=== PATIENT | female | born 1990 | race Caucasian/White ===

== ENCOUNTER 2016-10-14 10:41 | Emergency (ER) | payer SELFPAY ==
[2016-10-14 12:24] VITALS: BP 134/70
--- NOTE | 2016-11-15 18:44 | UC ---
Throat Pain/Nasal Jg HPI - HPI Summary HPI Summary: pt p/w [address], ear ache, sinus congestion/pain/olivia, green eye goup, non productive cough. - History of Current Complaint Chief Complaint: UCRespiratory Stated Complaint: EAR PAIN/ST Time Seen by Provider: 10/14/16 12:11 Hx Obtained From: Patient Hx Last Menstrual Period: 09/28/16 ?: No Onset/Duration: Gradual Onset, Lasting Weeks, Still Present Severity: Moderate Pain Intensity: 5 Pain Scale Used: 0-10 Numeric Cough: Nonproductive Associated Signs & Symptoms: Positive: Dysphagia, Wheezing, Sinus Discomfort, Nasal Discharge. Negative: Drooling, Fever, Vomiting Related History: Smoking - Epiglottits Risk Factors Epiglottis Risk Factors: Negative - Allergies/Home Medications Allergies/Adverse Reactions: Allergies Allergy/AdvReac Type Severity Reaction Status Date / Time Codeine Allergy Difficulty Verified 10/14/16 12:14 Breathing Home Medications: Home Medications Penicillin VK TAB 500 MG(NF) [Penicillin VK 500 mg Tab(NF)] 500 mg PO BID [History Confirmed 10/14/16] Pseudoephedrine TAB* [Sudafed TAB*] 30 mg PO Q6H PRN 10/14/16 [History Confirmed 10/14/16] PMH/Surg Hx/FS Hx/Imm Hx Previously Healthy: Yes - Surgical History Surgical History: Yes Surgery Procedure, Year, and Place: GALL BLADDER REMOVAL OCTOBER 2015 - Family History Known Family History: Negative: Cardiac Disease, Hypertension, Diabetes Family History: no FH asthma - Social History Alcohol Use: Occasionally Substance Use Type: None Smoking Status (MU): Current Some Day Smoker Type: Cigarettes Amount Used/How Often: social, 1-2 cigs QD, QOD Have You Smoked in the Last Year: Yes Cessation Counseling: Patient Advised to Stop Review of Systems Constitutional: Negative Skin: Negative Eyes: Drainage ENT: Sore Throat, Ear Ache, Nasal Discharge, Sinus Congestion, Sinus Pain/ Tenderness Respiratory: Cough Cardiovascular: Negative Gastrointestinal: Negative Musculoskeletal: Negative Neurological: Headache All Other Systems Reviewed And Are Negative: Yes Physical Exam Triage Information Reviewed: Yes Appearance: Well-Appearing, No Pain Distress, Well-Nourished Vital Signs: Initial Vital Signs Temp 98.1 F 10/14/16 12:18 Pulse 71 10/14/16 12:18 Resp 18 10/14/16 12:18 BP 134/70 10/14/16 12:18 Pulse Ox 100 10/14/16 12:18 Vital Signs Reviewed: Yes Eyes: Positive: Conjunctiva Clear. Negative: Discharge ENT: Positive: Hearing grossly normal, Pharyngeal erythema, Nasal congestion, Nasal drainage, TM bulging, TM dull, TM red. Negative: Tonsillar swelling, Tonsillar exudate, Trismus, Muffled/hoarse voice Neck: Positive: Supple, Nontender, No Lymphadenopathy Respiratory: Positive: No respiratory distress, No accessory muscle use, Wheezing - few scattered, Expiration - prolonged Cardiovascular: Positive: RRR, No Murmur Musculoskeletal Exam: Normal Neurological: Positive: Alert, Muscle Tone Normal Psychological: Positive: Age Appropriate Behavior Skin Exam: Normal Throat Pain/Nasal Course/Dx - Differential Dx/Diagnosis Differential Diagnosis/HQI/PQRI: Otitis Media, Pharyngitis, Sinusitis, Tonsillitis, URI Provider Diagnoses: sinusitis, bronchospasm, om Discharge - Discharge Plan Condition: Stable Disposition: HOME Prescriptions: Albuterol HFA INHALER* [Ventolin HFA Inhaler*] 2 puff INH Q4H PRN #1 mdi PRN Reason: Sob/Wheezing Amoxicillin/Clavulanate TAB* [Augmentin TAB 875*] 875 mg PO BID #20 tab Benzonatate CAP* [Tessalon 100 MG CAP*] 100 mg PO TID #30 cap guaiFENesin ER TAB [Mucinex*] 600 mg PO BID PRN #1 box PRN Reason: Cough Patient Education Materials: Sinusitis (ED), Otitis Media (ED), Bronchospasm ( ED) Forms: *Work Release Referrals: No Primary Care Phys,NOPCP [Primary Care Provider] - Additional Instructions: TRY USING THE NETTI POT IN THE MORNINGS DISCUSSED. YOU MUST ALWAYS USE CLEAN WATER. REMEMBER, POSTURE IS AN IMPORTANT FACTOR IN SINUS DRAINAGE. MOVE YOUR NECK, BREATHE. INHALED BRONCHODILATORS: You have received a prescription for an inhaled bronchodilator -- a medication which stimulates the airways in the lung to dilate. This improves the flow of air in asthma, bronchitis, and emphysema. These medicines have some similarity to adrenaline, and can cause similar side effects: shakiness, racing heart, and a sense of nervousness. These side effects decrease with time. Contact your doctor if these side effects are severe. Do not over-use the medicine. Too-frequent use of the inhaler may make it ineffective. Call your doctor if the inhaler is not controlling your symptoms at the prescribed doses. EXPECTORANT MEDICATION: WE SENT IN A SCRIPT FOR MUCINEX SO THAT IT IS EASIER FOR YOU TO PICK THE RIGHT MED AT THE PHARMACY. HOWEVER, YOU CAN ALSO GO TO THE [employer] [facility] AND BUY PLAIN GUAIFENESIN WITHOU BINDERS OR FILLERS. An expectorant medicine has been prescribed. This type of drug makes mucous thinner, helping the sinuses, nose, and bronchial tubes to remain free of pus and mucous. Expectorants make a cough less severe and more comfortable, and help infected sinuses drain. In general, antihistamines defeat the purpose of the expectorant by making mucous thicker. They should be avoided unless specifically recommended by your physician. TESSALON PERLES: You have received a prescription for Tessalon Perles (benzonatate). This is a non-narcotic medicine for relief of cough. It usually works in about 15- 20 minutes and lasts around four hours. Tessalon Perles should be swallowed. They should not be chewed or dissolved in the mouth (this can produce temporary numbing of the mouth and choking can occur). If you develop any adverse effects such as wheezing, shortness of breath, hives, rash, itching, or lightheadedness, please return at once. FOLLOW-UP CARE: You should establish with a private physician for follow-up care. If you are unable to get a timely appointment, or if you are worsening, call us or return for re-evaluation. An additional resource available to assist in finding the appropriate physician for your health care needs is the [facility]erral [facility]. You may contact them by calling [phone].
== END 2016-10-14 13:29 | disposition home or self-care (01) ==
LOC: UCCORT 10:41
DX: J32.9 Chronic sinusitis, unspecified (principal); J98.01 Acute bronchospasm; H66.90 Otitis media, unspecified, unspecified ear; Z32.02 Encounter for pregnancy test, result negative; Z88.5 Allergy status to narcotic agent; Z90.49 Acquired absence of other specified parts of digestive tract; Z72.0 Tobacco use
CPT/HCPCS: 84702; 99212; G0463

== ENCOUNTER 2017-04-07 11:02 | Emergency (ER) | payer SELFPAY ==
--- NOTE | 2017-04-07 11:43 | UC ---
Respiratory Complaint HPI - HPI Summary HPI Summary: Pt presents with sinus congestion. She tells me that over the last 1.5 weeks she has had sinus pain, pressure, and congestion. Over the last 2-3 days she has developed increasing sinus discomfort, felt feverish, and nauseous. Has been taking mucinex OTC with mild relief. Denies cough, ST, chest congestion, SOB, chest pain, abdominal pain, V/D/C - History of Current Complaint Stated Complaint: SINUS COMPLAINT Time Seen by Provider: 04/07/17 11:42 Hx Obtained From: Patient Hx Last Menstrual Period: 09/28/16 Onset/Duration: Gradual Onset Timing: Constant Severity Initially: Mild Severity Currently: Moderate - Allergies/Home Medications Allergies/Adverse Reactions: Allergies Allergy/AdvReac Type Severity Reaction Status Date / Time Codeine Allergy Difficulty Verified 04/07/17 11:39 Breathing PMH/Surg Hx/FS Hx/Imm Hx Previously Healthy: Yes - Surgical History Surgical History: Yes Surgery Procedure, Year, and Place: GALL BLADDER REMOVAL OCTOBER 2015 - Family History Known Family History: Negative: Cardiac Disease, Hypertension, Diabetes Family History: no FH asthma - Social History Occupation: Employed Full-time Lives: Alone Alcohol Use: Occasionally Substance Use Type: None Smoking Status (MU): Current Some Day Smoker Type: Cigarettes Amount Used/How Often: social, 1-2 cigs QD, QOD Have You Smoked in the Last Year: Yes Review of Systems Constitutional: Fever Skin: Negative Eyes: Negative ENT: Nasal Discharge, Sinus Congestion, Sinus Pain/Tenderness Respiratory: Negative Cardiovascular: Negative Gastrointestinal: Negative All Other Systems Reviewed And Are Negative: Yes Physical Exam Triage Information Reviewed: Yes Appearance: Well-Appearing, Well-Nourished Vital Signs Reviewed: Yes Eyes: Positive: Conjunctiva Clear. Negative: Conjunctiva Inflamed, Discharge ENT: Positive: Hearing grossly normal, Pharynx normal, Nasal congestion, Nasal drainage, TMs normal, Sinus tenderness, Uvula midline. Negative: Pharyngeal erythema, TM bulging, TM dull, TM red, Tonsillar swelling, Tonsillar exudate Neck: Positive: Supple, Nontender, No Lymphadenopathy Respiratory: Positive: Chest non-tender, Lungs clear, Normal breath sounds, No respiratory distress, No accessory muscle use Cardiovascular: Positive: RRR, No Murmur, Pulses Normal Neurological: Positive: Alert Psychological: Positive: Age Appropriate Behavior Skin: Negative: rashes Respiratory Course/Dx - Course Course Of Treatment: Sinusitis - Augmentin - Differential Dx/Diagnosis Differential Diagnosis/HQI/PQRI: Asthma, Influenza, Lower Resp Infection, Sinusitis Provider Diagnoses: Sinusitis Discharge - Discharge Plan Condition: Stable Disposition: HOME Prescriptions: Amoxicillin/Clavulanate TAB* [Augmentin TAB 875*] 875 mg PO BID #20 tab Patient Education Materials: Sinusitis (ED) Forms: *Work Release Referrals: No Primary Care Phys,NOPCP [Primary Care Provider] - Additional Instructions: If you develop a fever, SOB, chest pain, new or worsening symptoms - please call your PCP or go to the ED. Drink plenty of water! Try mucinex over the counter twice a day in addition to antibiotic.
[2017-04-07 11:44] VITALS: BP 120/71
== END 2017-04-07 12:05 | disposition home or self-care (01) ==
LOC: UCCORT 11:02
DX: J32.9 Chronic sinusitis, unspecified (principal); Z88.5 Allergy status to narcotic agent; Z72.0 Tobacco use
CPT/HCPCS: 99212; G0463

== ENCOUNTER 2018-03-19 09:36 | Emergency (ER) | payer SELFPAY ==
[2018-03-19 10:44] VITALS: BP 129/68
--- NOTE | 2018-03-19 11:20 | UC ---
Throat Pain/Nasal Jg HPI - HPI Summary HPI Summary: Pt presents with c/o ST, nasal congestion, "white" coating on tongue generalized malaise. Pt has known exposure to strep and thrush. - History of Current Complaint Chief Complaint: UCRespiratory Stated Complaint: SORE THROAT,SPOTS ON TONGUE Time Seen by Provider: 03/19/18 10:58 Hx Obtained From: Patient Hx Last Menstrual Period: 03/16/18 ?: No Onset/Duration: Sudden Onset, Lasting Days Severity: Moderate Pain Intensity: 7 Associated Signs & Symptoms: Positive: Dysphagia, Other - white coating on tongue - Epiglottits Risk Factors Epiglottis Risk Factors: Negative - Allergies/Home Medications Allergies/Adverse Reactions: Allergies Allergy/AdvReac Type Severity Reaction Status Date / Time morphine Allergy Severe Difficulty Verified 03/19/18 10:35 Breathing Home Medications: Home Medications Pnv No.95/Ferrous Fum/Folic AC [ Vitamin & Minera 28-0.8 mg] 1 tab PO DAILY 03/19/18 [History Confirmed 03/19/18] PMH/Surg Hx/FS Hx/Imm Hx Previously Healthy: Yes - Surgical History Surgical History: Yes Surgery Procedure, Year, and Place: GALL BLADDER REMOVAL OCTOBER 2015 - Family History Known Family History: Negative: Cardiac Disease, Hypertension, Diabetes Family History: no FH asthma - Social History Occupation: Employed Full-time Lives: With Family Alcohol Use: None Substance Use Type: None Smoking Status (MU): Current Some Day Smoker Type: Cigarettes Amount Used/How Often: social, 1-2 cigs QD, QOD Have You Smoked in the Last Year: Yes Household Exposure Type: Cigarettes - Immunization History Most Recent Influenza Vaccination: not this season Review of Systems All Other Systems Reviewed And Are Negative: Yes Constitutional: Positive: Chills Skin: Positive: Negative Eyes: Positive: Negative ENT: Positive: Sore Throat, Sinus Congestion Respiratory: Positive: Cough Cardiovascular: Positive: Negative Gastrointestinal: Positive: Negative Genitourinary: Positive: Negative Motor: Positive: Negative Neurovascular: Positive: Negative Musculoskeletal: Positive: Negative Neurological: Positive: Negative Psychological: Positive: Negative Is Patient Immunocompromised?: No Physical Exam Triage Information Reviewed: Yes Appearance: Ill-Appearing Vital Signs: Initial Vital Signs Temp 97.1 F 03/19/18 10:37 Pulse 68 03/19/18 10:37 Resp 18 03/19/18 10:37 BP 129/68 03/19/18 10:37 Pulse Ox 100 03/19/18 10:37 Vital Signs Reviewed: Yes Eye Exam: Normal ENT: Positive: Nasal congestion, Tonsillar swelling, Other - thin small patch, white coating on tongue- not scrapable Dental Exam: Normal Neck exam: Normal Respiratory Exam: Normal Cardiovascular Exam: Normal Musculoskeletal Exam: Normal Neurological Exam: Normal Psychological Exam: Normal Skin Exam: Normal Diagnostics - Laboratory Diagnostic Studies Completed/Ordered: rapid strep: negative Throat Pain/Nasal Course/Dx - Differential Dx/Diagnosis Differential Diagnosis/HQI/PQRI: Influenza, Pharyngitis, Tonsillitis, URI Provider Diagnoses: sore throat. viral syndrome Discharge - Sign-Out/Discharge Documenting (check all that apply): Patient Departure All imaging exams completed and their final reports reviewed: No Studies - Discharge Plan Condition: Stable Disposition: HOME Patient Education Materials: Viral Syndrome (ED) Forms: *Work Release Referrals: [facility] [Outside] - If Needed No Primary Care Phys,NOPCP [Primary Care Provider] - - Billing Disposition and Condition Condition: STABLE Disposition: Home
--- NOTE | 2018-03-20 07:13 | UC ---
- Progress Note Progress Note: MRSA neg S. Neg 4+ gram cocci sample from mouth await culture Discharge - Sign-Out/Discharge Documenting (check all that apply): Post-Discharge Follow Up All imaging exams completed and their final reports reviewed: No Studies - Discharge Plan Condition: Stable Disposition: HOME Patient Education Materials: Viral Syndrome (ED) Forms: *Work Release Referrals: [facility] [Outside] - If Needed No Primary Care Phys,NOPCP [Primary Care Provider] - - Billing Disposition and Condition Condition: STABLE Disposition: Home
== END 2018-03-19 11:29 | disposition home or self-care (01) ==
LOC: UCCORT 09:36
DX: B34.9 Viral infection, unspecified (principal); J02.9 Acute pharyngitis, unspecified; R09.81 Nasal congestion; R53.81 Other malaise; F17.210 Nicotine dependence, cigarettes, uncomplicated; Z88.5 Allergy status to narcotic agent
CPT/HCPCS: 87070; 87205; 87640; 87641; 87651; 99211; G0463

== ENCOUNTER 2018-06-12 10:47 | Emergency (ER) | payer BC ==
--- OUTSIDE RECORDS SUMMARY | 2018-06-12 10:59 | XMS REPORT | Continuity of Care Document ---
:1990 External Reference #:[id number] Author Name Nette Coon MD, PHD Address [address] [facility], [address] [place] [address] Care Team Providers Name Role Phone Nette Coon MD, PHD Care Team Information Inspector Chief Unavailable Nette Coon MD, PHD Primary Care Physician Unavailable Payers Type Date Identification Numbers Payment Provider Subscriber Policy Number: [id number] [employer] Apolonia E Tirado PayID: [id number] [place] [address] Expires: 2015 Policy Number: [id number] [employer] Apolonia E Tirado [address] [address] Expires: 2018 Policy Number: [id number] [facility] Apolonia E Tirado PayID: [id number] [address] [place] [address] Expires: 2018 Policy Number: [id number] [employer] Apolonia E Tirado PayID: [id number] [place] [address] Advance Directives Description No Information Available Problems Date Description Provider Status Onset: 07/02/2017 Gastroesophageal reflux disease Yenifer Shaffer M.D. Active Onset: 07/02/2017 Low back pain Yenifer Shaffer M.D. Active Onset: 07/02/2017 Anxiety state Yenifer Shaffer M.D. Active Onset: 07/02/2017 Chronic maxillary sinusitis Yenifer Shaffer M.D. Active Onset: 08/28/2017 Epigastric pain Davis Villa MD Active Onset: 04/22/2018 Malaise and fatigue Nette Coon MD, PHD Active Onset: 04/22/2018 Palpitations Nette Coon MD, PHD Active Onset: 04/22/2018 Gastro-esophageal reflux disease Nette Coon MD, PHD Active with esophagitis Onset: 04/22/2018 Abdominal pain Nette Coon MD, PHD Active Onset: 04/22/2018 Insomnia Nette Coon MD, PHD Active Onset: 04/22/2018 Polycystic ovaries Nette Coon MD, PHD Active Onset: 04/22/2018 Hidradenitis Nette Coon MD, PHD Active Onset: 04/22/2018 Fracture of tooth Nette Coon MD, PHD Active Family History Date Family Member(s) Problem(s) Comments Father Diabetes Father Hypertension Father Depression Mother IBS Maternal Grandfather Thyroid Disease Maternal Grandfather due to Cancer () Maternal Grandfather Dementia Maternal Grandfather Stroke Maternal Grandfather Cancer Maternal Grandmother due to Cancer () Maternal Grandmother Diabetes Mellitus Type 2 Maternal Grandmother Cancer thyroid Social History Type Date Description Comments Sex Unknown Marital Status Single Lives With Significant Other Lives With Father lives in side house Home Environment Lives With fiance Diet Patient is on a low carb diet 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 Tobacco Use Start: Unknown Currently smokes 1-5 Patient is down to 1 Cigarettes Daily a day Smoking Status Reviewed: 08/19/17 Currently smokes 1-5 Patient is down to 1 Cigarettes Daily a day Smokeless Tobacco Never Used Smokeless Tobacco ETOH Use Currently consumes alcohol socially Tobacco Use Start: Unknown social 1-2 ciggs daily Recreational Drug Use Denies Drug Use Allergies, Adverse Reactions, Alerts Date Description Reaction Status Severity Comments 12/14/2015 Codeine Active Moderate Medications Medication Date Status Form Strength Qnty SIG Indications Ordering Provider Zoloft Active Tablets 25mg 30tabs 1 tab by F33.0 Anthony Coon mouth Nette, every day MD, PHD every night Protonix Active Tablets DR 20mg 30tabs 1 by K21.0 Jaymie 019 mouth Nette, once a MD, PHD day as needed Methocarbamol Active Tablets 500mg 14tabs 1 tabs by M54.5 Jaymie, 019 mouth at Nette, bedtime MD, PHD as needed for muscle spasm Protonix Active Tablets DR 40mg 30tabs 1 tab by K21.0 Jaymie, 018 mouth Nette, every day MD, PHD before meals R10.13 Z90.49 D3 Maximum 04/22/2018 Active Capsules 5000Unit 90caps 1 cap by G47.00 Jaymie, Strength mouth Nette, every day MD, PHD with food B12 Fast Dissolve 04/22/2018 Active Tablets 5000mcg 90tabs 1 tab by G47.00 Jaymie, Dispers mouth Ntete, every day MD, PHD Nac 600 04/22/2018 Active Capsules 600mg 120caps 2 cap by G47.00 Jaymie , mouth Nette, twice a MD, PHD day Metformin HCL ER 04/22/2018 Active Tablets 500mg 60tabs 1-2 tabs E28.2 Jaymie, ER 24HR by mouth Nette, every MD, PHD morning Magnesium 04/22/2018 Active Tablets 250mg 60tabs 1 tab by K21.0 Jaymie, Gluconate mouth Nette, twice a MD, PHD day 07/02/2017 Active Tablets 27-0.8mg 90tabs 1 tab by Z00.01 Jayime, mouth Nette, every MD, PHD daily Ibuprofen 200 Active Tablets 200mg 1-2 tabs Unknown by mouth three times a day as needed Acetaminophen Active Tablets 500mg 2 by Unknown Extra Strength mouth three times a day as needed Prilosec OTC 05/07/2018 Hx Tablets 20mg 60tabs 1 tab by K21.0 Jaymie, - DR mouth Nette, 05/11/2018 twice a MD, PHD day Labetalol HCL 05/07/2018 Hx Tablets 100mg 30tabs 1/2-1 tab G47.00 Jaymie, - by mouth Nette, 06/04/2018 at MD, PHD bedtime Mag Glycinate 04/27/2018 Hx Tablets 100mg 90tabs 1 by Jaymie, - mouth Nette, 06/04/2018 every day MD, PHD as needed muscle cramps D3 High Potency 04/22/2018 Hx Capsules 2000Unit 60caps 2 cap by K21.0 Jaymie, - mouth Nette, 06/04/2018 every day , PHD Magnesium 04/22/2018 Hx Tablets 27.5mg 90tabs 1 by K21.0 Jaymie Gluconate - mouth Nette, 04/22/2018 every day , PHD Doxycycline 04/22/2018 Hx Tablets 50mg 30tabs 1 tab by L73.2 Jaymie Hyclate - mouth Nette, 06/04/2018 every day , PHD separate from dairy products Cymbalta 08/27/[address] 30mg 30caps 1 cap Po Deena, - Part q day Yenifer, 04/22/2018 M.D. Mupirocin 08/19/2017 Hx Ointment 2% 44gm apply to L02.234 Deena, - affected Yenifer, 04/22/2018 area M.D. under breasts and in pelvis tid Venlafaxine HCL 08/19/2017 Hx Caps ER 37.5mg 30caps 1 by F41.9 Deena, ER - 24HR mouth Yenifer, 08/27/2017 every day M.D. Vitamin D3 07/04/2017 Hx Capsules 22745Tsdi 4caps 1 cap by Deena, - mouth Yenifer, 04/22/2018 every M.D. week x 8 weeks Buspirone HCL 07/02/2017 Hx Tablets 7.5mg 60tabs 1 tab by F41.9 Deena, - mouth Yenifer, 08/19/2017 twice a M.D. day Pantoprazole 07/02/2017 Hx Tablets 40mg 90tabs 1 by K21.9 Deena, Sodium - DR mouth Yenifer, 05/11/2018 every day M.D. Cyclobenzaprine 07/02/2017 Hx Tablets 5mg 30tabs 1-2 tabs M54.5 Deena, HCL - by mouth Yenifer, 04/22/2018 every M.D. night at bedtime Protonix Hx Packet 40mg 1 by Unknown - mouth 07/02/2017 every day Ibuprofen Hx Tablets 200mg as needed Unknown - 07/02/2017 Tylenol Hx Capsules 325mg Unknown - 07/02/2017 Omeprazole Hx Capsules 40mg 1 by Z13.1 Unknown - DR mouth 07/02/2017 every day Immunizations Description No Information Available Vital Signs Date Vital Result Comment 06/04/2018 1:15pm BP Systolic 116 mmHg BP Diastolic 67 mmHg Body Temperature 98.6 F Heart Rate 80 /min Respiratory Rate 16 /min Height 63 inches 5'3" Weight 213.00 lb BMI (Body Mass Index) 37.7 kg/m2 BSA (Body Surface Area) 1.99 m2 [place] body weight in kilograms 52 kg O2 % BldC Oximetry 100 % 05/07/2018 9:23am BP Systolic 125 mmHg BP Diastolic 77 mmHg Body Temperature 98.7 F Heart Rate 60 /min Respiratory Rate 16 /min Height 63 inches 5'3" Weight 212.00 lb BMI (Body Mass Index) 37.6 kg/m2 BSA (Body Surface Area) 1.98 m2 [place] body weight in kilograms 52 kg O2 % BldC Oximetry 100 % 04/22/2018 12:56pm BP Systolic 132 mmHg BP Diastolic 81 mmHg Body Temperature 98.7 F Heart Rate 87 /min Respiratory Rate 18 /min Height 63 inches 5'3" Weight 204.00 lb BMI (Body Mass Index) 36.1 kg/m2 BSA (Body Surface Area) 1.95 m2 [place] body weight in kilograms 52 kg O2 % BldC Oximetry 100 % 08/28/2017 1:27pm BP Systolic Sitting Left Arm 120 mmHg BP Diastolic Sitting Left Arm 80 mmHg Heart Rate 85 /min Respiratory Rate 16 /min Height 63 inches 5'3" Weight 215.00 lb BMI (Body Mass Index) 38.1 kg/m2 BSA (Body Surface Area) 1.99 m2 [place] body weight in kilograms 52 kg 08/19/2017 3:10pm BP Systolic Sitting Left Arm 136 mmHg BP Diastolic Sitting Left Arm 80 mmHg Height 63 inches 5'3" Weight 208.25 lb BMI (Body Mass Index) 36.9 kg/m2 BSA (Body Surface Area) 1.97 m2 [place] body weight in kilograms 52 kg 07/02/2017 2:02pm BP Systolic Sitting Left Arm 132 mmHg large cuff BP Diastolic Sitting Left Arm 82 mmHg large cuff Height 63 inches 5'3" Weight 205.00 lb BMI (Body Mass Index) 36.3 kg/m2 BSA (Body Surface Area) 1.95 m2 [place] body weight in kilograms 52 kg Last Menstrual Period [id number] 12/14/2015 11:23am BP Systolic 124 mmHg BP Diastolic 73 mmHg Heart Rate 74 /min Respiratory Rate 18 /min Height 64 inches 5'4" Weight 220.00 lb BMI (Body Mass Index) 37.8 kg/m2 BSA (Body Surface Area) 2.04 m2 [place] body weight in kilograms 54 kg Results Test Date Facility Test Result H/L Range Note Xray 06/04/2018 [facility] - Radiology Spine, Lumbosacral <pending> [address] [place] [address] [phone] Ultrasound, Thyroid <pending> Celiac Disease 04/22/2018 [facility] Immunoglobulin A 214 mg/dL 87-352 1 Comp AB Profile [address] [place] [address] [phone] Antigliadin Abs, IgG 2 units 0-19 2 Antigliadin Abs, IgA 5 units 0-19 3 Endomysial IgA Antibody Negative Negative t-Transglutaminase IgA <2 U/mL 0-3 4 t-Transglutaminase IgG <2 U/mL 0-5 5 CBC W/Automated Diff 04/22/2018 [facility] White Blood 8.3 K/uL N 3.1-10.[address] [place] [address] [phone] Red Blood Count 4.82 M/uL N 3.90-5.40 Hemoglobin 13.1 gm/dL N 11.6-15.8 Hematocrit 40.9 % N 36.0-46.1 Mean Cell Volume 84.9 fl N 80.9-99.0 Mean Corpuscular HGB 27.2 pg N 25.9-32.7 Mean Corpuscular HGB Conc 32.0 g/dL N 30.8-34.3 Platelet Count 401 K/uL High 155-360 Red Cell Distri Width SD 42.4 fl N 3-47 Red Cell Distri Width %CV 13.9 % N 11.7-14.4 Mean Platelet Volume 11.6 fL N 8.9-12.4 Neut% 68.5 % N 40.4-72.8 Lymph % 22.6 % N 20.0-42.0 [place] % 6.6 % N 4.3-13.2 Eo% 2.1 % N 0.0-6.6 Bas% 0.2 % N 0.0-1.1 Neut# 5.68 K/uL N 1.8-7.0 Lymph # 1.87 K/uL N 1.0-4.0 [place] # 0.55 K/uL N 0.3-0.9 Eos # 0.17 K/uL N 0.0-0.5 Baso # 0.02 K/uL N 0.0-0.1 Comprehensive Metabolic 04/22/2018 [facility] Glucose 79 mg/dL N 74-[address] [place] [address] [phone] BUN 8 mg/dL N 7-18 Creatinine 0.6 mg/dL N 0.6-1.3 Glom Filtration Rate, Estimate >60 mL/min >60 If >60 mL/min >60 6 BUN/Creat 13.3 ratio Sodium 137 mmol/L N 136-145 Potassium 3.8 mmol/L N 3.5-5.1 Chloride 103 mmol/L N 98-107 Carbon Dioxide 27 mmol/L N 21-32 Anion Gap 7 mEq/L Low 8-16 Calcium 9.0 mg/dL N 8.5-10.1 Total Protein 8.6 g/dL High 6.4-8.2 Albumin 4.2 g/dL N 3.4-5.0 Globulin 4.4 g/dL High 1.9-4.3 Alb/Glob 1.0 ratio Bilirubin,Total 0.3 mg/dL N 0.2-1.0 Sgot/Ast 15 U/L N 15-37 SGPT/Alt 31 U/L N 12-78 Alkaline Phosphatase 80 U/L N 45-117 Laboratory 04/22/2018 [facility] Vitamin 28.2 Low 30.0-100.0 7 test finding [address] D,25-Hydroxy ng/[place] [address] [phone] Vitamin B12 04/22/2018 [facility] Vitamin B12 678 pg/mL N 193-[address] [place] [address] [phone] Folic Acid 16.3 ng/mL N 3.1-17.5 Laboratory test 04/22/2018 [facility] Thyroid Stim 2.24 uIU/mL N 0.30-4.[address] [place] [address] [phone] Free T4 1.01 ng/dL N 0.76-1.46 Sedimentation Rate 16 mm/hr N 0-20 8 Testosterone, Women/Child 22 ng/dL . 9 Dehydroepiandrosterone Sulfate 235.3 g/dL 84.8-378.0 10 Amylase 40 U/L N 25-115 Lipase 99 U/L N 56-289 Laboratory 09/03/2017 [facility] Urine HCG NEGATIVE Negative 11, 12 test finding [address] (Qualitative) [place] [address] [phone] CBS 08/19/2017 [facility] White Blood 10.7 K/uL N 3.1-10.7 W/Automated [address] [place] [address] [phone] Red Blood Count 4.65 M/uL N 3.90-5.40 Hemoglobin 12.8 gm/dL N 11.6-15.8 Hematocrit 38.9 % N 36.0-46.1 Mean Cell Volume 83.7 fl N 80.9-99.0 Mean Corpuscular HGB 27.5 pg N 25.9-32.7 Mean Corpuscular HGB Conc 32.9 g/dL N 30.8-34.3 Platelet Count 374 K/uL High 155-360 Red Cell Distri Width SD 41.4 fl N 3-47 Red Cell Distri Width %CV 13.9 % N 11.7-14.4 Mean Platelet Volume 11.4 fL N 8.9-12.4 Neut% 66.5 % N 40.4-72.8 Lymph % 24.6 % N 20.0-42.0 [place] % 6.9 % N 4.3-13.2 Eo% 1.7 % N 0.0-6.6 Bas% 0.3 % N 0.0-1.1 Neut# 7.12 K/uL High 1.8-7.0 Lymph # 2.63 K/uL N 1.0-4.0 [place] # 0.74 K/uL N 0.3-0.9 Eos # 0.18 K/uL N 0.0-0.5 Baso # 0.03 K/uL N 0.0-0.1 Slide Review 08/19/2017 [facility] Slide Review (SEE [address] NOTE) [place] [address] [phone] Slide Review 07/02/2017 [facility] Slide Review . 14, [address] [place] [address] [phone] Laboratory test 07/02/2017 [facility] Vitamin 23.2 Low 30. [address] D,25-Hydroxy ng/mL 0-1 [place] [address] 00. [phone] Glycohemoglobin A1c 07/02/2017 [facility] Glycohemoglobin 5.1 % N 4.[address] (A1c) -6. [place] [address] 3 [phone] eAG 100 mg/dL LDL Cholesterol Profile 07/02/2017 [facility] Cholesterol 180 mg/dL <[address] [place] [address] [phone] Triglycerides 192 mg/dL High <150 19 HDL Cholesterol 50 mg/dL >40 20 LDL-Cholesterol 92 mg/dL < 100 21 Reflex add FT3? Y Reflex add FT4? Y CBS W/Automated 07/02/2017 [facility] White Blood 11.0 K/uL High 3.1-10.[address] [place] [address] [phone] Red Blood Count 4.51 M/uL N 3.90-5.40 Hemoglobin 12.2 gm/dL N 11.6-15.8 Hematocrit 37.4 % N 36.0-46.1 Mean Cell Volume 82.9 fl N 80.9-99.0 Mean Corpuscular HGB 27.1 pg N 25.9-32.7 Mean Corpuscular HGB Conc 32.6 g/dL N 30.8-34.3 Platelet Count 344 K/uL N 155-360 Red Cell Distri Width SD 42.1 fl N 3-47 Red Cell Distri Width %CV 14.2 % N 11.7-14.4 Mean Platelet Volume 11.2 fL N 8.9-12.4 Neut% 73.7 % High 40.4-72.8 Lymph % 17.9 % Low 20.0-42.0 [place] % 6.5 % N 4.3-13.2 Eo% 1.7 % N 0.0-6.6 Bas% 0.2 % N 0.0-1.1 Neut# 8.13 K/uL High 1.8-7.0 Lymph # 1.97 K/uL N 1.0-4.0 [place] # 0.72 K/uL N 0.3-0.9 Eos # 0.19 K/uL N 0.0-0.5 Baso # 0.02 K/uL N 0.0-0.1 Comprehensive Metabolic 07/02/2017 [facility] Glucose 84 mg/dL N 74-[address] [place] [address] [phone] BUN 9 mg/dL N 7-18 Creatinine 0.6 mg/dL N 0.6-1.3 Glom Filtration Rate, Estimate >60 mL/min >60 If >60 mL/min >60 22 BUN/Creat 15.0 ratio Sodium 138 mmol/L N 136-145 Potassium 3.6 mmol/L N 3.5-5.1 Chloride 104 mmol/L N 98-107 Carbon Dioxide 27 mmol/L N 21-32 Anion Gap 7 mEq/L Low 8-16 Calcium 9.2 mg/dL N 8.5-10.1 Total Protein 7.9 g/dL N 6.4-8.2 Albumin 3.7 g/dL N 3.4-5.0 Globulin 4.2 g/dL N 1.9-4.3 Alb/Glob 0.9 ratio Bilirubin,Total 0.2 mg/dL N 0.2-1.0 Sgot/Ast 19 U/L N 15-37 SGPT/Alt 31 U/L N 12-78 Alkaline Phosphatase 67 U/L N 45-117 Reflex add FT3? Y Reflex add FT4? Y TSH Reflex FT4 07/02/2017 [facility] Thyroid Stim 2.25 uIU/mL N 0.30-4.20 And/Or FT3 [address] [place] [address] [phone] Reflex add FT3? Y Reflex add FT4? Y Laboratory test 12/15/2015 [facility] Pathology itis w 23, [address] [place] [address] [phone] Pathology Specimen (SEE NOTE) N 25 Comprehensive Metabolic 12/13/2015 [facility] Glucose 103 mg/dL 74-106 Panel [address] [place] [address] [phone] BUN 7 mg/dL 7-18 Creatinine 0.6 mg/dL 0.6-1.3 Glom Filtration Rate, Estimate >60 mL/min >60 If >60 mL/min >60 26 BUN/Creat 11.6 ratio Sodium 136 mmol/L 136-145 Potassium 3.7 mmol/L 3.5-5.1 Chloride 105 mmol/L 98-107 Carbon Dioxide 26 mmol/L 21-32 Anion Gap 5 mEq/L Low 8-16 Calcium 8.9 mg/dL 8.5-10.1 Total Protein 7.8 g/dL 6.4-8.2 Albumin 3.6 g/dL 3.4-5.0 Globulin 4.2 g/dL 1.9-4.3 Alb/Glob 0.9 ratio Bilirubin,Total 0.2 mg/dL 0.2-1.0 Sgot/Ast 15 U/L 15-37 SGPT/Alt 34 U/L 12-78 Alkaline Phosphatase 71 U/L 45-117 Laboratory test finding 12/13/2015 [facility] Lipase 92 U/L 73-393 [address] [place] [address] [phone] HCG,Serum (Qualitative) NEGATIVE (Negative) CBC W/Automated 12/13/2015 [facility] White Blood 13.7 K/uL High 3.1-10.[address] [place] [address] [phone] Red Blood Count 4.74 M/uL 3.90-5.40 Hemoglobin 12.9 gm/dL 11.6-15.8 Hematocrit 39.5 % 36.0-46.1 Mean Cell Volume 83.3 fl 80.9-99.0 Mean Corpuscular HGB 27.2 pg 25.9-32.7 Mean Corpuscular HGB Conc 32.7 g/dL 30.8-34.3 Platelet Count 379 K/uL High 155-360 Red Cell Distri Width SD 42.2 fl 3-47 Red Cell Distri Width %CV 14.2 % 11.7-14.4 Mean Platelet Volume 11.5 fL 8.9-12.4 Neut% 71.1 % 40.4-72.8 Lymph % 18.1 % 17.0-46.1 [place] % 6.6 % 4.3-13.2 Eo% 3.8 % 0.0-6.6 Bas% 0.4 % 0.0-1.1 Neut# 9.74 K/uL High 1.8-7.0 Lymph # 2.47 K/uL 1.8-7.0 [place] # 0.90 K/uL 0.3-0.9 Eos # 0.52 K/uL High 0.0-0.5 Baso # 0.05 K/uL 0.0-0.1 Laboratory test 12/13/2015 [facility] Slide Review DIFF ORDERED finding [address] [place] [address] [phone] Urinalysis With 12/13/2015 [facility] Urine Color YELLOW Yellow Microscopic [address] [place] [address] [phone] Urine Clarity CLEAR Clear Urine Glucose - Dipstick NEGATIVE mg/dL Negative Urine Bilirubin - Dipstick NEGATIVE Negative Urine Ketone NEGATIVE mg/dL Negative Urine Specific [place] 1.020 1.010-1.030 Urine Blood NEGATIVE Negative Urine PH 6.0 Low 6.5-7.5 Urine Protein - Dipstick NEGATIVE mg/dL Negative Urine Urobilinogen - Dipstick 0.2 E.U./dL 0.2-1.0 Urine Nitrite - Dipstick NEGATIVE Negative Urine Leuk Esterase TRACE High Negative Urine RBC 0-2 rbc/hpf 0-2 Urine WBC 2-5 wbc/hpf 0-7 Urine Epithelial Cells VERY FEW NONESEEN/lpf Urine Bacteria VERY FEW NONESEEN Urine Screen 12/13/2015 [facility] Ua RFX Micro + See Note 27 [address] [place] [address] [phone] Differential WBC 12/13/2015 [facility] Total Cells 100 #CELLS Confirm [address] [place] [address] [phone] Metamyelocyte% 1 % High -0 Band% 2 % 0-8 Neutrophils% 69 % 33-73 Lymph% 21 % 17-56 Monocyte% 5 % 0-10 Eosinophil% 2 % 0-5 Platelet Estimate NORMAL Anisocytosis 0-1+ Microcytosis 0-1+ Toxic Granulation 0-1+ Laboratory test finding 12/13/2015 N2N/CCD Import Band Neutrophils % 2 0 -8 Basophils # (Auto) 0.05 0.0-0.1 Carbon Dioxide Level 26 21-32 Differential Total Cells Counted 100 Eosinophils # (Auto) 0.52 High 0.0-0.5 Eosinophils % 2 0-5 Lymphocytes # (Auto) 2.47 1.8-7.0 Lymphocytes % 21 17-56 Manual Slide Review (Hematology) Diff Ordered Metamyelocytes % 1 High -0 Monocytes # (Auto) 0.90 0.3-0.9 Monocytes % 5 0-10 Neutrophils # (Auto) 9.74 High 1.8-7.0 RDW Coefficient of Variation 14.2 11.7-14.4 Red Cell Distribution Width 42.2 3-47 Sodium Level 136 136-145 Urine Bilirubin Negative Negative Urine Glucose (Ua) Negative Negative Urine Ketones Negative Negative Urine Leukocyte Esterase Trace High Negative Urine Nitrite Negative Negative Urine Protein Negative Negative Urine Urobilinogen 0.2 0.2-1.0 1 E28.2,K21.0,K10.9,R53.83 E28.2,K21.0,K10.9,R53.83 R10.9 SANJIV.2 M26.89 Z71.3 2 Negative 0 - 19 Weak Positive 20 - 30 Moderate to Strong Positive >30 3 Negative 0 - 19 Weak Positive 20 - 30 Moderate to Strong Positive >30 4 Negative 0 - 3 Weak Positive 4 - 10 Positive >10 Tissue Transglutaminase (tTG) has been identified as the endomysial antigen. Studies have demonstr- ated that endomysial IgA antibodies have over 99% specificity for gluten sensitive enteropathy. 5 Negative 0 - 5 Weak Positive 6 - 9 Positive >9 6 Note: Persistent reduction for 3 months or more in an eGFR <60 mL/min/1.73 m2 defines CKD. Patients with eGFR values >/=60 mL/min/1.73 m2 may also have CKD if evidence of persistent proteinuria is present. The original MDRD equation for estimated GFR is not valid for patients less than 18 years of age. Additional information may be found at www.kdoqi.org. 7 Vitamin D deficiency has been defined by the [place] [employer] and an Endocrine Society practice guideline as a level of serum 25-OH vitamin D less than 20 ng/mL (1,2). The Endocrine Society went on to further define vitamin D insufficiency as a level between 21 and 29 ng/mL (2). 1. IOM ([place] [employer]). 2010. Dietary reference intakes for calcium and D. [place]: The National AcademTRIRIGA Press. 2. Bruna CORNEJO, Mariella BOWERS, Curry MORAN, et al. Evaluation, treatment, and prevention of vitamin D deficiency: an Endocrine Society clinical practice guideline. JCEM. 2010; 96(1):1911-30. Performed at: [facility] [address] [id number] [employer] Salesperson: Rachel Orellana MD, Phone: [phone] Method: Sediplast Modified Westergren 9 Reference Range: Adult Females Premenopausal 10 - 55 Postmenopausal 7 - 40 10 Performed at: [address] [id number] [employer] Salesperson: Rachel Orellana MD, Phone: [phone] Performed at: [facility] [address] [place] [id number] [employer] Salesperson: Bayron Ferrell MD, Phone: [phone] GASTROSCOPY 12 FIRST MORNING SPECIMENS GENERALLY CONTAIN THE HIGHEST CONCENTRATION OF HCG AND ARE RECOMMENDED FOR EARLY DETECTION OF . Method: Quidel QuickVue One-Step Immunoassay 13 Instrument flagged sample for slide review. Less than 10% Bands seen, no other immature WBC's seen. RBC morphology essentially normal. Platelet estimate=NORMAL 14 Z13.6, F33.0, E55.9 15 Instrument flagged sample for slide review. Less than 10% Bands seen, no other immature WBC's seen. RBC morphology essentially normal. Platelet estimate=NORMAL, LARGE PLATELETS PRESENT. 16 Vitamin D deficiency has been defined by the [place] [employer] and an Endocrine Society practice guideline as a level of serum 25-OH vitamin D less than 20 ng/mL (1,2). The Endocrine Society went on to further define vitamin D insufficiency as a level between 21 and 29 ng/mL (2). 1. IOM ([place] [employer]). 2010. Dietary reference intakes for calcium and D. [place]: The National Academies Press. 2. Mariella Avalos, Curry MORAN, et al. Evaluation, treatment, and prevention of vitamin D deficiency: an Endocrine Society clinical practice guideline. JCEM. 2010; 96(7):1911-30. Performed at: RN - [facility] [address] [id number] [employer] Salesperson: Rachel Orellana MD, Phone: [phone] 17 Elevated levels of HbA1c suggest the need for more aggressive treatment of glycemia. The [place] Diabetes [employer] recommends that a primary goal of therapy should be a HbA1c of <7% and that physicians should re-evaluate the treatment regimen in patients with HbA1c values consistently >8%. 18 Reference Guidelines*: Desirable: ........... < 200 mg/dL Borderline High: ..... 200-239 mg/dL High: ................ >=240 mg/dL * The National Cholesterol Education Program (NCEP) 19 Reference Guidelines*: Normal: ............. < 150 mg/dL Borderline High: .... 150-199 mg/dL High: ............... 200-499 mg/dL Very High: .......... > 500 mg/dL * Source: National Cholesterol Education Program (NCEP) 20 Reference Guidelines*: Low HDL: ..... < 40 mg/dL Normal: ..... 40-60 mg/dL Desirable: ... > 60 mg/dL *The National Cholesterol Education Program(NCEP) 21 Reference Guidelines*: Optimal:........... <100 mg/dL Near Optimal....... 100-129 mg/dL Borderline High.... 130-159 mg/dL High............... 160-189 mg/dL Very High.......... >=190 mg/dL * Source: National Cholesterol Education Program (NCEP) 22 Note: Persistent reduction for 3 months or more in an eGFR <60 mL/min/1.73 m2 defines CKD. Patients with eGFR values >/=60 mL/min/1.73 m2 may also have CKD if evidence of persistent proteinuria is present. The original MDRD equation for estimated GFR is not valid for patients less than 18 years of age. Additional information may be found at www.kdoqi.org. 23 CONSULT 12/13 29585 K81.0 24 [employer] Hard copy of report to be sent by mail Report may be viewed in Clinical Review, or in PCI under Medical Record Forms 25 [employer] Hard copy of report to be sent by mail Report may be viewed in Clinical Review, or in PCI under Medical Record Forms 26 Note: Persistent reduction for 3 months or more in an eGFR <60 mL/min/1.73 m2 defines CKD. Patients with eGFR values >/=60 mL/min/1.73 m2 may also have CKD if evidence of persistent proteinuria is present. The original MDRD equation for estimated GFR is not valid for patients less than 18 years of age. Additional information may be found at www.kdoqi.org. 27 12/13/15 [facility]AP Deleted by Reflex Group [facility] Procedures Date Code Description Status 04/22/2018 02717 Brief Emotional/Behav Assessment W/ Scoring Doc Per Completed [facility] 09/03/2017 63785 EGD With Biopsy Completed 12/15/2015 [id number] Laparoscopy; cholecystectomy Completed Encounters Type Date Location Provider Dx Diagnosis Office Visit 06/04/2018 Nette Fritz, K21.0 Gastro- esophageal 1:30p Miguel A Live MD, PHD reflux disease with esophagitis E28.2 Polycystic ovarian syndrome L73.2 Hidradenitis suppurativa F33.0 Major depressive disorder, recurrent, mild M54.5 Low back pain Office Visit 05/07/2018 9:30a Family Howie Coon G47.00 Insomnia, Miguel A Perdue MD, unspecified PHD R53.83 Other fatigue F33.0 Major depressive disorder, recurrent, mild R00.2 Palpitations E28.2 Polycystic ovarian syndrome K21.0 Gastro-esophageal reflux disease with esophagitis L73.2 Hidradenitis suppurativa M54.5 Low back pain Office Visit 04/22/2018 1:00p Nette Fritz, R53.83 Other fatigue Miguel A Live MD, PHD R00.2 Palpitations F33.0 Major depressive disorder, recurrent, mild K21.0 Gastro-esophageal reflux disease with esophagitis R10.9 Unspecified abdominal pain G47.00 Insomnia, unspecified E28.2 Polycystic ovarian syndrome M54.5 Low back pain L73.2 Hidradenitis suppurativa 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 exam (general) (routine) w abnormal findings L02.234 Carbuncle of groin F41.9 Anxiety disorder, unspecified F33.0 Major depressive disorder, recurrent, mild R10.13 Epigastric pain M54.5 Low back pain D72.829 Elevated white blood cell count, unspecified Office Visit 07/02/2017 2:15p [facility] Yenifer Shaffer, Z00.01 Encounter for Jason WIGGINS M.D. general adult medical exam w abnormal findings Z13.6 Encounter for screening for cardiovascular disorders Z13.1 Encounter for screening for diabetes mellitus K21.9 Gastro-esophageal reflux disease without esophagitis M54.5 Low back pain F41.9 Anxiety disorder, unspecified F33.0 Major depressive disorder, recurrent, mild J32.0 Chronic maxillary sinusitis R10.33 Periumbilical pain F17.210 Nicotine dependence, cigarettes, uncomplicated L02.234 Carbuncle of groin Office Visit 12/14/2015 Surgical Petey, K81.0 Acute cholecystitis 11:30a Office Shun Irwin M.D. Plan of Treatment Future Appointment(s):07/03/2018 8:30 am - Nette Coon MD, PHD at [facility]05/07/2018 - Nette Coon MD, PHDG47.00 Insomnia, unspecifiedNew Medication:Labetalol HCL 100 mg - 1/2-1 tab by mouth at bedtimeComments:Practice good sleep hygiene, including:~ Restricting the night- time sleep period to about eight hours~ Waking at a regular time~ Arising from bed at a regular time~ Avoiding going to bed too early~ Avoiding alcohol~ Avoiding stimulants, caffeinated beverages, power/energy drinks, nicotine, and [id number] medications~ Avoiding stimulating activities, light, noise, and temperature extremes beforebedtime (e.g., exercise, video games, T.V.) or in the sleeping area~ Reducing (to less than 30 minutes), or abolishing, daytime naps~ Practicing relaxation techniques~ Engaging in moderate exercise, but not immediately before tbzxkqiQ10.83 Other sjlxuobF51.0 Major depressive disorder, recurrent, mildComments:To help lesson mood and anxiety with neutraceuticals - long-term, will take weeks to months to show an effect often: Vitamin D - likely deficient due to vasquez effect in [place]. Implicated in osteoporosis, osteopenia, fatigue, increased risk of diabetes, and depression/ seasonal affective disorder. Recommend you take 4000 to 5000 IU of Vitamin D3 daily. Can check vitamin D25 level - takes year+ to replace deficiency. Can get capsule or gummy over the counter. [place] 3 - essential fatty acid has a mild moodstabilizing effect. Good supplement for kids and aids brain development. Increases good cholesterol and helps clean plaque out of arteries, also has an anti-inflammatory effect for joints, skin, etc. recommend 1000mg of DHA +EPA daily - capsule or gummy over the counter. N-acetyl Cysteine - current studies show a an anti-agitation, improved clarity of thought effect. Biologically seems to reduce inflammation in nervous system. Studies show 1800mg to 2400mg daily safe. Improvements start at 3 weeks, continue to improve at 12 weeks of taking. Gastroenterology. 2017 Dec;153(2):448-459.e8. doi: 10.1053/ j.gastro.2017.05.003. Epub 2016September 13.Probiotic Bifidobacterium longum [id number] Reduces Depression Scores and Alters Brain Activity: A Supply Coordinator Study in Patients With Irritable Bowel Syndrome.Etta MI1, Smith GB2, Harinder K2, Gisela A1, Sarahino C1, Carranza JT1, Hal FP3, Comcinthya O3, Amharic C1, Rieder A2, Karlos J2, Cruz C2, De Couch G1, Pigrau M1, Ken AC4, Shelly J5, Vic B6, Nela G6, Ceferino MG1, Stone SM1, Celena P1, Aníbal P7.Author informationAbstractBACKGROUND & AIMS: Probiotics can reduce symptoms of irritable bowel syndrome (IBS), but little is known about their effects on psychiatric comorbidities. We performed a prospective study to evaluate the effects of Bifidobacterium longum [id number] (BL) on anxiety and depression in patients with IBS.METHODS: We performed a randomized, double-blind, placebo- controlled study of 44 adults with IBS and diarrhea or a mixed-stoolpattern ( based on [place] III criteria) and mild to moderate anxiety and/or depression ( based on the Hospital Anxiety and Depression scale) at [facility] in [place], from July 2010 to September 2013. At the screening visit, clinical history and symptoms were assessed and blood samples were collected. Patients were then randomly assigned to groups and given daily BL (n=22) or placebo (n=22) for 6 weeks. At weeks 0, 6, and 10, we determined patients' levels of anxiety and depression, IBS symptoms, quality of life, and somatization using validated questionnaires. At weeks 0 and 6, stool, urine and blood samples were collected , and functional magnetic resonance imaging (fMRI) test was performed. We assessed brain activation patterns, fecal microbiota, urine metabolome profiles , serum markers of inflammation, neurotransmitters, and neurotrophin levels.RESULTS: At week 6, 14 of 22 patients in the BL group had reduction in depression scores of 2 points or more on the Hospital Anxiety and Depression scale, vs 7 of 22 patients in the placebo group (P=.04). BL had no significant effect on anxiety or IBSsymptoms. Patients in the BL group had a mean increase in quality of life score compared with the placebo group. The fMRI analysis showed that BL reduced responses to negative emotional stimuli in multiple brain areas, including amygdala and fronto-limbic regions, compared with placebo. The groups hadsimilar fecal microbiota profiles, serum markers of inflammation, and levels of neurotrophins and neurotransmitters, but the BL group had reduced urine levels of methylamines and aromatic amino acids metabolites. At week 10, depression scores were reduced in patients given BL vs placebo.CONCLUSION: [place] placebo-controlled trial, we found that the probiotic BL reduces depression but not anxiety scoresand increases quality of life in patients with IBS. These improvements were associated with changes in brain activation patterns that indicate that this probiotic reduces limbic reactivity. ClinicalTrials.gov no. [id number].Follow up:4 week follow up or sooner if needed.R00.2 AbgalthaieaeY60.2 Polycystic ovarian uipprrziO71.0 Gastro -esophageal reflux disease with esophagitisNew Medication:Prilosec OTC 20 mg - 1 tab by mouth twice a dayNew Labs:Helicobacter Pylori, Igm Abs, Ordered: L73.2 Hidradenitis mnflnlxqpixN93.5 Low back painComments:Please get back xray Goals 05/07/2018 - Nette Coon MD, PHDF33.0 Major depressive disorder, recurrent , mildAction plan for overcoming depression Find a counselor you trust. Get 30 min of any type of exercise daily. Check out the Free Michelle "Head Space" to help with meditation. Get 7-8 hours of sleep at night. Up your intake of essential omega 3 fatsThis means eating oily fish at least twice a week, seeds on most days and supplementing omega 3 fish oils. The best fish for EPA, the type of omega 3 fat that??s linked with improving mood, are: Mackerel (1,400mg per 100g /3oz), Novoa/kipper (1,000mg), Sardines (1,000mg),fresh tuna (900mg), Anchovy (900mg), Bradford (800mg),[place] (500mg). Tuna, being high inmercury is best eaten not more than three times a month. The best seeds are flax seeds and pumpkin seeds. Flax seeds are so small they are best ground and sprinkled on cereal. Alternatively, use flax seed oil, for example in salad dressings. While technically providing omega 3 only about 5% of the type of omega 3 (alpha linolenic acid) in these seeds is converted in your body into EPA. [place]-3 seedsand seed oil should not be cooked. When supplementing omega 3 fish oils you are aiming for about 1,000mg of EPA a day for a mood boosting effect. That means supplementing a concentrated [place] 3 Fish Oil capsule providing 500mg, once or twice a day and eating a serving of any of the above fish three times a week. Check your homocysteine level and get enough B vitaminsYour homocysteine level is an indicator of your B vitamin needs. , You can be tested through your GP or using a home test kit. If your level is above 9mmol/l take a combined ?? homocysteine?? supplement of B2, B6, B12, folic acid, zinc, and TMG, providing at least 400mcg of folic acid, 250mcg of B12 and 20mg of B6. If your homocysteine score is above 15mmol/l double this amount. Also eat B vitamin rich whole foods ?? whole grains, beans, nuts, seeds, fruits and vegetables. Folic acid is particularly rich in green vegetables, beans, lentils, nuts and seeds, while B12 is only found in animal foods ?? meat, fish, eggs and dairy produce. A good starting point is also to supplement a multivitamin providing optimal levels of B vitamins,which means 25mg-50mg of B1, B2, B3 (niacin), B5 ( pantothenic acid), B6 (pyridoxine) and at least 100mcg of folic acid and 10mcg of B12 and biotin. Consider supplementing the amino acid 5-HTPMost of the effective studies used 300mg of 5-HTP, however we ideally recommend testing if you are low in serotonin with a platelet serotonin test and starting with 100mg , or 50mg twice a day. If 5-HTP is not available, you could supplement the amino acid tryptophan in amounts of 500mg ?? 2g per day ?? again, we would suggest starting at the lower end. Tryptophan is best absorbed either on an empty stomach or,ideally, with a carbohydrate snack such as a piece of fruit or an oatcake. 5-HTP is well-absorbed with or without food. Also, make sure you eat enough protein from beans, lentils, nuts, seeds, fish, eggs and meat, which are all high in tryptophan. Do not take 5-HTP or tryptophan if you are currently taking an anti-depressant without your doctor??s permission. Avoid or reduce caffeine, sugar, refinedcarbohydrates and alcoholEat a diet that will stabilise your blood sugar (known as the Low GL diet).The cyr points are: Only eat low GL carbohydrates; Always combine your low GL carbohydrates with protein in a ratio of 1:1; Eat at regular intervals, including snacks that include low GL carbohydrate and protein such as fresh fruit with a handful of nuts, oatcakes with homous or celery and cottage cheese; Only eat sweet foods as a very occasional treat and only after a meal or healthy snack. 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 ?s Low GL Dietbook. Consider supplementing chromiumIf you suffer from ?? atypical depression?? (see above) studiesshow that 600mcg of chromium a day is effective. Supplements generally come in 200mcg pills. Take two with breakfast and one with lunch. If this works, after a month reduce to one with breakfast and one with lunch. If this works, reduce to one with breakfast after a further month. Don??t take chromiumin the evening as it can be stimulating. In addition to supplementing chromium, you should adopt the low GL Diet style of eating as outlined above. Have a vitamin D testAsk your GP or nutritional therapist for a vitamin D test. If your level is below 75 nmol/litre, supplement 2,000 iu per day for 12weeks, and then get a retest. Get some sensible sun exposure, without sun-block, but don??t risk your skin health by allowing yourself to get sunburned! Investigate food intolerancesYou may suspect some foods which may or may not be one of the usual suspects - are gluten (wheat, rye, barley), wheat,dairy (all types ?? cow, sheep, goat, milk, cheese, cream etc), soya, yeast and eggs. If this is thecase, you could try an exclusion of the food or foods for a brief trial period. Alternatively, you could undertake an IgG MEGA blood test to determine whether you have raised antibody levels to specific foods in your blood which is a good indication. Either way, don??t make dramatic changes to your diet or cut out whole food groups without professional guidance to ensure your diet remains healthy and balanced ?? this is especially important for the frail and for children. Finding help
[2018-06-12 13:10] LABS: Influenza A Molecular POSITIVE (Negative)
[2018-06-12 13:39] VITALS: BP 134/76
--- NOTE | 2018-06-12 13:39 | UC ---
FLU HPI - HPI Summary HPI Summary: 28-year-old female presents with onset of fever, chills, fatigue, general malaise, body aches, nasal congestion, sore throat, and a nonproductive cough yesterday. Denies ear pain, dysphagia, chest pain, shortness of breath, abdominal pain, nausea, vomiting, or diarrhea. - History of Current Complaint Chief Complaint: UCGeneralIllness Stated Complaint: FATIGUE,BODY ACHES,FEVER Hx Obtained From: Patient Hx Last Menstrual Period: 06/01/18 Pain Intensity: 10 - Allergy/Home Medications Allergies/Adverse Reactions: Allergies Allergy/AdvReac Type Severity Reaction Status Date / Time codeine Allergy Difficulty Verified 06/12/18 11:33 Breathing Home Medications: Home Medications Cholecalciferol (Vitamin D3) [Vitamin D3] 5,000 unit PO DAILY 06/12/18 [History Confirmed 06/12/18] Pantoprazole TAB * [Protonix TAB*] 20 mg PO DAILY 06/12/18 [History Confirmed ] Sertraline* [Zoloft*] 50 mg PO DAILY 06/12/18 [History Confirmed 06/12/18] traZODone TAB* [Desyrel TAB*] 50 mg PO BEDTIME 06/12/18 [History Confirmed 06/12] PMH/Surg Hx/FS Hx/Imm Hx Previously Healthy: Yes GI/ History: Gastroesophageal Reflux Psychological History: Depression - Surgical History Surgical History: Yes Surgery Procedure, Year, and Place: GALL BLADDER REMOVAL OCTOBER 2015 - Family History Known Family History: Positive: Non-Contributory - Social History Occupation: Employed Full-time Lives: With Family Alcohol Use: Rare Substance Use Type: None Smoking Status (MU): Former Smoker Type: Cigarettes Amount Used/How Often: social, 1-2 cigs QD, QOD Have You Smoked in the Last Year: Yes Household Exposure Type: Cigarettes - Immunization History Most Recent Influenza Vaccination: not this season Review of Systems All Other Systems Reviewed And Are Negative: Yes Constitutional: Positive: Fever, Chills, Fatigue Skin: Negative: Rash Eyes: Negative: Drainage, Eye Redness ENT: Positive: Sore Throat, Nasal Discharge, Sinus Congestion. Negative: Ear Ache, Sinus Pain/Tenderness Respiratory: Positive: Cough. Negative: Shortness Of Breath Cardiovascular: Negative: Palpitations, Chest Pain Gastrointestinal: Negative: Abdominal Pain, Vomiting, Diarrhea, Nausea Genitourinary: Positive: Negative Musculoskeletal: Positive: Myalgia Neurological: Positive: Negative Is Patient Immunocompromised?: No Physical Exam - Summary Physical Exam Summary: GENERAL APPEARANCE: Well developed, well nourished, alert and cooperative, and appears to be in no acute distress. EYES: Conjunctiva clear. No drainage. Vision is grossly intact. EARS: External auditory canals and tympanic membranes clear, hearing grossly intact. NOSE: Mild-moderate nasal congestion with clear nasal discharge. THROAT: Pharyngeal erythema. No tonsilar inflammation, swelling, exudate, or lesions. Oral cavity normal. Teeth and gingiva in good general condition. NECK: Neck supple, non-tender without lymphadenopathy. CARDIAC: Normal S1 and S2. No S3, S4 or murmurs. Rhythm is regular. There is no peripheral edema, cyanosis or pallor. Extremities are warm and well perfused. Capillary refill is less than 2 seconds. LUNGS: Clear to auscultation without rales, rhonchi, wheezing or diminished breath sounds. Dry non-productive cough. ABDOMEN: Positive bowel sounds. Soft, nondistended, nontender. No guarding or rebound. No masses or hepatosplenomegally. MUSKULOSKELETAL: ROM intact to all extremities. No joint erythema or tenderness. Normal muscular development. Normal gait. SKIN: Skin normal color, texture and turgor with no lesions or eruptions. Triage Information Reviewed: Yes Vital Signs: Initial Vital Signs Temp 99.6 F 06/12/18 11:31 Pulse 110 06/12/18 11:31 Resp 18 06/12/18 11:31 BP 135/74 06/12/18 11:31 Pulse Ox 98 06/12/18 11:31 Vital Signs Reviewed: Yes Diagnostics - Laboratory Diagnostic Studies Completed/Ordered: Rapid flu positive Flu Course/Dx - Course Course Of Treatment: 28-year-old female presents with onset of fever, chills, fatigue, general malaise, body aches, nasal congestion, sore throat, and a nonproductive cough yesterday. Denies ear pain, dysphagia, chest pain, shortness of breath, abdominal pain, nausea, vomiting, or diarrhea. Afebrile. Mildly tachycardic otherwise vital signs are stable. Exam reveals an alert adult female in no acute distress with mild amount nasal congestion, pharyngeal erythema, no tonsillar swelling or exudate, palatal clear Barcellos, and a nonproductive cough. Rapid flu was positive for influenza A. We'll start the patient on Tamiflu 75 mg twice a day 5 days and recommend symptomatic treatment. 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 She is to follow-up with a primary care provider 7 days if symptoms do not improve. Anticipatory guidance and warning symptoms were reviewed with the patient. Verbalizes understanding and agrees to plan of care. - Differential Dx/Diagnosis Differential Diagnosis/HQI/PQRI: Bronchitis, Influenza, Pneumonia, Upper Respiratory Infection Provider Diagnosis: Influenza A Discharge - Sign-Out/Discharge Documenting (check all that apply): Patient Departure All imaging exams completed and their final reports reviewed: No Studies - Discharge Plan Condition: Stable Disposition: HOME Prescriptions: Benzonatate CAP* [Tessalon 100 MG CAP*] 100 mg PO TID PRN #30 cap PRN Reason: Cough Oseltamivir CAP* [Tamiflu CAP*] 75 mg PO BID #10 cap Patient Education Materials: Influenza (ED) Forms: *Work Release Referrals: Nette Coon MD [Primary Care Provider] - 7 Days (If no improvement.) Additional Instructions: Your rapid flu test was positive for influenza A. Influenza typically runs its course over 7-10 days with the first 3-5 days being the worst of the symptoms. Start Tamilfu 75 mg 1 cap twice a day for 5 days. Drink plenty of fluids to avoid dehydration especially if you are running any fever. May use an over the counter decongestant such as Sudafed according to directions as needed for congestion. Take over the counter acetaminophen (Tylenol) or ibuprofen (Advil, Motrin) according to directions as needed for pain or fever. Use salt water gargles several times a day if you have a sore throat. You may also use Chloraseptic spray or Cepacol lonzenges according to directions which contain a numbing medication and can provide some temporary relief from your sore throat. Use Tessalon Perles 1 cap every 8 hours as needed for cough. Follow up with your primary care provider in 7 days if symptoms persist. Seek immediate medical attention in the emergency room if you have fever greater than 100.5 F despite taking acetaminophen or ibuprofen, have chest pain , difficulty breathing, are unable to swallow, or have any worsening of symptoms. - Billing Disposition and Condition Condition: STABLE Disposition: Home
== END 2018-06-12 13:52 | disposition home or self-care (01) ==
LOC: UCCORT 10:47
DX: J10.1 Influenza due to other identified influenza virus with other respiratory manifestations (principal); K21.9 Gastro-esophageal reflux disease without esophagitis; F32.9 Major depressive disorder, single episode, unspecified; Z88.5 Allergy status to narcotic agent; Z87.891 Personal history of nicotine dependence
CPT/HCPCS: 99212; G0463

== ENCOUNTER 2019-06-14 08:04 | Emergency (ER) | payer SELFPAY ==
[2019-06-14 08:41] VITALS: BP 115/64
[2019-06-14 09:05] LABS: Influenza A Molecular Negative (Negative); Influenza B Molecular Negative (Negative)
--- NOTE | 2019-06-14 09:49 | UC ---
FLU HPI - HPI Summary HPI Summary: Pt presents with c/o sudden onset of nausea and vomiting, body aches, chills that began this morning. 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 - History of Current Complaint Chief Complaint: UCGI Stated Complaint: VOMITING LOW GRADE FEVER CHILLS Time Seen by Provider: 06/14/19 08:58 Hx Obtained From: Patient Hx Last Menstrual Period: 06/07/19 ?: No Onset/Duration: Sudden Onset, Lasting Hours, Other - pt vomited 3 X's this morning. Severity Currently: Moderate Severity Initially: Mild Pain Intensity: 5 Pain Scale Used: 0-10 Numeric Associated Signs & Symptoms: Positive: Fever, Myalgia, Vomiting Related Hx: Possible Flu/Infectious Exposure - Risk Factors Influenza Risk Factors: Negative - Allergy/Home Medications Allergies/Adverse Reactions: Allergies Allergy/AdvReac Type Severity Reaction Status Date / Time codeine Allergy Difficulty Verified 06/14/19 08:41 Breathing oseltamivir [From Tamiflu] Allergy Nausea And Verified 06/14/19 08:42 Vomiting, increased flu sx PMH/Surg Hx/FS Hx/Imm Hx Previously Healthy: Yes - Surgical History Surgical History: Yes Surgery Procedure, Year, and Place: GALL BLADDER REMOVAL OCTOBER 2015 - Family History Known Family History: Positive: Cardiac Disease, Non-Contributory - Social History Occupation: Employed Full-time Lives: With Family Alcohol Use: None Substance Use Type: None Smoking Status (MU): Former Smoker Type: Cigarettes Amount Used/How Often: social, 1-2 cigs QD, QOD Have You Smoked in the Last Year: Yes Household Exposure Type: Cigarettes - Immunization History Most Recent Influenza Vaccination: not this season Vaccination Up to Date: No Review of Systems All Other Systems Reviewed And Are Negative: Yes Constitutional: Positive: Fever, Chills, Fatigue Skin: Positive: Negative Eyes: Positive: Negative ENT: Positive: Sore Throat Respiratory: Positive: Negative Cardiovascular: Positive: Negative Gastrointestinal: Positive: Abdominal Pain, Vomiting, Nausea Genitourinary: Positive: Negative Motor: Positive: Negative Neurovascular: Positive: Negative Musculoskeletal: Positive: Myalgia Neurological: Positive: Headache Psychological: Positive: Negative Is Patient Immunocompromised?: No Physical Exam Triage Information Reviewed: Yes Appearance: Ill-Appearing Vital Signs: Initial Vital Signs Temp 97.5 F 06/14/19 08:35 Pulse 71 06/14/19 08:35 Resp 18 06/14/19 08:35 BP 115/64 06/14/19 08:35 Pulse Ox 100 06/14/19 08:35 Vital Signs Reviewed: Yes Eye Exam: Normal ENT Exam: Normal Dental Exam: Normal Neck exam: Normal Respiratory Exam: Normal Abdominal Exam: Normal, Other - c/o "yucky feeling". Musculoskeletal Exam: Normal Neurological Exam: Normal Psychological Exam: Normal Skin Exam: Normal Flu Course/Dx - Course Course Of Treatment: Pt declined offer of anti nausea medication - Differential Dx/Diagnosis Differential Diagnosis/HQI/PQRI: Influenza, Other - gastroenteritis Provider Diagnosis: Nausea and vomiting Discharge ED - Sign-Out/Discharge Documenting (check all that apply): Patient Departure All imaging exams completed and their final reports reviewed: No Studies - Discharge Plan Condition: Stable Disposition: HOME Patient Education Materials: Acute Nausea and Vomiting (ED) Forms: *Work Release Referrals: Nette Coon MD [Primary Care Provider] - - Billing Disposition and Condition Condition: STABLE Disposition: Home
== END 2019-06-14 09:28 | disposition home or self-care (01) ==
LOC: UCCORT 08:04
DX: R11.2 Nausea with vomiting, unspecified (principal); R10.9 Unspecified abdominal pain; M79.10 Myalgia, unspecified site; Z87.891 Personal history of nicotine dependence; Z88.5 Allergy status to narcotic agent; Z88.3 Allergy status to other anti-infective agents
CPT/HCPCS: 99211; G0463

== ENCOUNTER 2020-08-29 17:52 | Inpatient (IN) ==
[2020-08-29 18:35] LABS: Urine Appearance Clear; Urine Bilirubin Negative (Negative); Urine Blood 1+ (Negative); Urine Color Straw; Urine Glucose Negative (Negative); Urine Ketones Negative (Negative); Urine Nitrite Negative (Negative); Urine Protein Negative (Negative); Urine Urobilinogen Negative (Negative)
[2020-08-29 18:38] LABS: Urine Bacteria 1+ (Absent); Urine Red Blood Cell Absent (Absent); Urine Squamous Epithelial Cell Present (Absent); Urine White Blood Cell Trace(0-5/hpf) (Absent)
[2020-08-29 19:09] LABS: Urine Benzodiazepine Screen None Detected (None Detect); Urine Cannabinoids Screen Presumptive Positive (None Detect); Urine Opiates Screen None Detected (None Detect)
[2020-08-29 19:23] LABS: ABS Eosinophils 0.1 10^3/ul (0-0.6); ABS Lymphocytes 1.5 10^3/ul (1.0-4.8); ABS Monocytes 0.7 10^3/ul (0-0.8); ABS Neutrophils 9.9 10^3/ul (1.5-7.7); Eosinophil % 0.8 %; Hematocrit 35 % (35-47); Hemoglobin 11.6 g/dL (12.0-16.0); Lymphocyte % 12.6 %; Mean Corpuscular HGB Conc 33 g/dL (31-36); Mean Corpuscular Hemoglobin 28 pg (27-31); Mean Corpuscular Volume 84 fL (80-97); Mean Platelet Volume 9.6 fL (7.4-10.4); Platelet Count 243 10^3/uL (150-450); Red Cell Distribution Width 13 % (10-15); White Blood Count 12.3 10^3/uL (3.5-10.8)
[2020-08-29 19:51] LABS: Albumin 3.2 g/dL (3.2-5.2); Calcium 8.9 mg/dL (8.6-10.3); EGFR African American 109.1 (>60); EGFR Non-African American 90.1 (>60); Globulin 3.2 g/dL (2-4); Potassium 3.7 mmol/L (3.5-5.0); Total Bilirubin 0.2 mg/dL (0.2-1.0); Total Protein 6.4 g/dL (6.4-8.9); Uric Acid 5.1 mg/dL (2.3-6.6)
[2020-08-30] MEDS ORDERED: Calcium Carb (TUMS) 500 mg CHEW TAB PO PRN (00:01)
[2020-08-30] MEDS ORDERED: OBEPIDURAL 250 ML EPIDURAL ONE (17:43)
[2020-08-30] MEDS ORDERED: Phenylephrine 40 mcg/mL 10mL (400mcg) SYRINGE IV PUSH PRN ×2 (18:11)
[2020-08-30] MEDS ORDERED: Sodium Citrate/Citric Acid LIQ 15 ML UDC PO PRN (18:11)
[2020-08-30] MEDS ORDERED: EPHEDrine (Pressors) 50 MG/ML VIAL IV PUSH PRN ×2 (18:11)
[2020-08-30] MEDS ORDERED: Lactated Ringers 1000 ml BAG 1,000 ML IV ONE (18:11)
[2020-08-30] MEDS ORDERED: fentaNYL 100 mcg/2 ml 50 MCG/ML VIAL ONE (18:15)
[2020-08-30] MEDS ORDERED: Lactated Ringers 1000 ml BAG 1,000 ML IV SCH (19:00)
[2020-08-30] MEDS ORDERED: OBEPIDURAL 250 ML EPIDURAL SCH (19:00)
[2020-08-30 20:35] LABS: Urine Appearance Clear; Urine Bilirubin Negative (Negative); Urine Blood Negative (Negative); Urine Color Yellow; Urine Glucose Negative (Negative); Urine Ketones 2+ (Negative); Urine Nitrite Negative (Negative); Urine Protein Negative (Negative); Urine Specific Gravity 1.016 (1.002-1.030); Urine Urobilinogen Negative (Negative)
[2020-08-30] MEDS ORDERED: Oxytocin in LR 20 UNITS/1,000 ML BAG IVPB ONE (21:26)
[2020-08-30] MEDS ORDERED: Ondansetron 4 mg VIAL 2 MG/ML 2 ml VIAL IV PRN (22:00)
[2020-08-30] MEDS ORDERED: Oxytocin in LR 20 UNITS/1,000 ML BAG IVPB SCH (22:00)
[2020-08-30] MEDS ORDERED: diPHENhydraMINE IV 50 MG/ML 1 ml VIAL (BENADRYL) SLOW PUSH PRN (22:01)
[2020-08-31] MEDS ORDERED: fentaNYL 100 mcg/2 ml 50 MCG/ML VIAL ONE (11:10)
[2020-08-31] MEDS ORDERED: Lidocaine 2% w/ EPI 1:200,000 MPF 20 ML SDV VIAL ONE (11:25)
[2020-08-31] MEDS ORDERED: Measles, Mumps,Rubella VACC 0.5 ML/VIAL SUBCUT ONE (15:15)
[2020-08-31] MEDS ORDERED: Glycerin ADULT 2.4 gm SUPP PR PRN (15:15)
[2020-08-31] MEDS ORDERED: Oxytocin in LR 20 UNITS/1,000 ML BAG IVPB SCH (16:00)
[2020-08-31] MEDS ORDERED: Lactated Ringers 1000 ml BAG 1,000 ML IV SCH (16:00)
[2020-08-31] MEDS: Dibucaine 1% OINT 28.35 GM TUBE PR PRN (16:41)
[2020-08-31] MEDS: Witch Hazel PAD JAR TOPICAL PRN (16:41)
[2020-08-31] MEDS ORDERED: Lidocaine 1% VIAL 10 MG/ML VIAL ONE (18:17)
[2020-09-01 06:04] LABS: ABS Basophils 0.1 10^3/ul (0-0.2); ABS Eosinophils 0.1 10^3/ul (0-0.6); ABS Lymphocytes 1.5 10^3/ul (1.0-4.8); ABS Monocytes 0.8 10^3/ul (0-0.8); ABS Neutrophils 10.8 10^3/ul (1.5-7.7); Eosinophil % 0.8 %; Hematocrit 33 % (35-47); Hemoglobin 10.7 g/dL (12.0-16.0); Lymphocyte % 11.4 %; Mean Corpuscular HGB Conc 33 g/dL (31-36); Mean Corpuscular Hemoglobin 28 pg (27-31); Mean Corpuscular Volume 86 fL (80-97); Mean Platelet Volume 9.2 fL (7.4-10.4); Platelet Count 235 10^3/uL (150-450); Red Cell Distribution Width 14 % (10-15); White Blood Count 13.4 10^3/uL (3.5-10.8)
[2020-09-01] MEDS ORDERED: Measles, Mumps,Rubella VACC 0.5 ML/VIAL ONE (17:41)
[2020-09-01] MEDS: Witch Hazel PAD JAR TOPICAL PRN (17:59)
[2020-09-01] MEDS: Dibucaine 1% OINT 28.35 GM TUBE PR PRN (17:59)
[2020-09-01 19:24] VITALS: BP 140/71
== END 2020-09-01 19:50 | disposition home or self-care (01) | DRG 560 ==
LOC: MCHOBOUT 17:52 → MCHOB 18:27
PROVIDERS: ADMIT Midwife; ATTEND Midwife

== ENCOUNTER 2023-02-28 23:06 | Inpatient (IN) ==
[2023-02-28] MEDS ORDERED: Lidocaine 1% VIAL 10 MG/ML 30 ML VIAL INJ PRN (23:58)
[2023-02-28] MEDS ORDERED: Lactated Ringers 1000 ml BAG 1,000 ML IV ONE (23:58)
[2023-03-01 01:38] LABS: ABS Eosinophils 0.1 10^3/uL (0.0-0.5); ABS Lymphocytes 1.2 10^3/uL (1.0-4.8); ABS Monocytes 0.8 10^3/uL (0.0-0.9); ABS Neutrophils 10.8 10^3/uL (1.5-7.6); ABS Nucleated RBC 0.02 10^3/ul; Eosinophil % 0.7 %; Hematocrit 34.8 % (35-45); Hemoglobin 11.8 g/dL (11.5-14.3); Lymphocyte % 9.6 %; Mean Corpuscular Hemoglobin 29.2 pg (27-33); Mean Platelet Volume 9.7 fL (7.5-11.2); Nucleated Red Blood Cells % 0.2 %/100WBC (0.0-0.8); Platelet Count 268 10^3/uL (150-450); Red Blood Count 4.04 10^6/uL (3.63-4.92); Red Cell Distribution Width 13.3 % (12-17)
[2023-03-01] MEDS ORDERED: fentaNYL 100 mcg/2 ml 50 MCG/ML VIAL ONE (02:07)
[2023-03-01] MEDS ORDERED: OBEPIDURAL (200 ML) 200 ML EPIDURAL ONE (02:10)
[2023-03-01] MEDS ORDERED: Lidocaine 1.5% EPI 1:200,000 30 ML SDV ONE (02:11)
[2023-03-01 02:36] LABS: Urine Benzodiazepine Screen None Detected (None Detect); Urine Cannabinoids Screen Presumptive Positive (None Detect); Urine Opiates Screen None Detected (None Detect)
[2023-03-01] MEDS ORDERED: Sodium Citrate/Citric Acid LIQ 15 ML UDC PO PRN (02:48)
[2023-03-01] MEDS ORDERED: Phenylephrine 40 mcg/mL 10mL (400mcg) SYRINGE IV PUSH PRN ×2 (02:48)
[2023-03-01] MEDS ORDERED: Lactated Ringers 1000 ml BAG 1,000 ML IV ONE (02:48)
[2023-03-01] MEDS ORDERED: OBEPIDURAL (200 ML) 200 ML EPIDURAL SCH (03:00)
[2023-03-01] MEDS ORDERED: Lactated Ringers 1000 ml BAG 1,000 ML IV SCH ×2 (03:00→07:00)
[2023-03-01 03:20] LABS: Urine Appearance Cloudy; Urine Bilirubin Negative (Negative); Urine Blood Negative (Negative); Urine Color Yellow; Urine Glucose Negative (Negative); Urine Ketones Trace (Negative); Urine Nitrite Negative (Negative); Urine Protein Negative (Negative); Urine Specific Gravity 1.014 (1.002-1.030); Urine Urobilinogen Negative (Negative)
[2023-03-01 03:26] LABS: Albumin 3.4 g/dL (3.2-5.2); Calcium 8.7 mg/dL (8.6-10.3); Potassium 3.9 mmol/L (3.5-5.0); Total Bilirubin 0.3 mg/dL (0.2-1.0)
[2023-03-01 03:32] LABS: Albumin/Globulin Ratio 1.1 (1-3); Creatinine, Serum 0.5 mg/dL (0.51-0.95); Total Protein 6.4 g/dL (6.4-8.9); Uric Acid 3.1 mg/dL (2.3-6.6); eGFR CKD-EPI 126.9 (>60)
[2023-03-01] MEDS ORDERED: Witch Hazel PAD JAR TOPICAL PRN (06:22)
[2023-03-01] MEDS ORDERED: Dibucaine 1% OINT 28.35 GM TUBE PR PRN (06:22)
[2023-03-01] MEDS ORDERED: Oxytocin in LR 20,000 MILLI.UNIT/1,000 ML BAG IV SCH (06:25)
[2023-03-02 07:38] LABS: ABS Eosinophils 0.1 10^3/uL (0.0-0.5); ABS Lymphocytes 1.6 10^3/uL (1.0-4.8); ABS Monocytes 0.6 10^3/uL (0.0-0.9); ABS Neutrophils 8.5 10^3/uL (1.5-7.6); ABS Nucleated RBC 0.01 10^3/ul; Eosinophil % 1.2 %; Hematocrit 33.4 % (35-45); Hemoglobin 11.3 g/dL (11.5-14.3); Lymphocyte % 14.7 %; Mean Corpuscular Hemoglobin 29.1 pg (27-33); Mean Corpuscular Hgb Conc 33.7 g/dL (31-36); Mean Corpuscular Volume 86.4 fL (80-97); Mean Platelet Volume 8.7 fL (7.5-11.2); Platelet Count 240 10^3/uL (150-450); Red Blood Count 3.87 10^6/uL (3.63-4.92); Red Cell Distribution Width 13.3 % (12-17); White Blood Count 10.9 10^3/uL (3.8-11.8)
[2023-03-02 08:17] VITALS: BP 142/67
== END 2023-03-02 14:07 | disposition home or self-care (01) | DRG 560 ==
LOC: MCHOBOUT 23:06 → MCHOB 23:55
PROVIDERS: ADMIT Midwife; ATTEND Midwife